=== PATIENT | male | born 1950 | race Caucasian/White ===

== ENCOUNTER 2018-11-23 09:58 | Day surgery (SDC) ==
[2018-11-23] MEDS: TETRACAINE 0.5% UNIT-DOSE OP PRN ×2 (10:00→11:22)
[2018-11-23] MEDS: BETADINE OPTH PREP OP PRN ×2 (10:00→11:24)
[2018-11-23] MEDS: CYCLOGYL 2% OPTH OP PRN ×3 (10:01→10:11)
[2018-11-23] MEDS ORDERED: ZOFRAN 4 MG/2 ML IVP ONE (10:42)
[2018-11-23] MEDS ORDERED: LIDOCAINE 1% 20 ML MDV ID STA (10:42)
[2018-11-23] MEDS ORDERED: DEX-MOXI-KETOR OPTH INJ 1/0.5/0.4 MG/ML IO ONE (10:42)
[2018-11-23] MEDS ORDERED: BSS WITH EPINEPHRINE OP ONE (10:42)
[2018-11-23] MEDS ORDERED: LIDOCAINE 1%/PHENYLEPHRINE 1.5% BSS (SURGERY) INTRAOCULA ONE (10:42)
[2018-11-23 10:50] VITALS: TEMP 97.9
[2018-11-23] MEDS ORDERED: DECADRON 4 MG/ML SDV ONE (11:30)
[2018-11-23] MEDS ORDERED: DURAGESIC TD ONE (11:30)
[2018-11-23] MEDS ORDERED: VERSED ONE (11:30)
[2018-11-23] MEDS ORDERED: TORADOL ONE (11:30)
[2018-11-23] MEDS ORDERED: SUBLIMAZE ONE (11:30)
[2018-11-23] MEDS ORDERED: MIOSTAT INTRAOCULA ONE (12:00)
[2018-11-29 12:48] VITALS: BP 111/54
== END 2018-11-23 13:00 | disposition home or self-care (01) ==
LOC: SURG 09:58
PROVIDERS: ATTEND Ophthalmology
DX: H25.12 Age-related nuclear cataract, left eye (principal); H26.40 Unspecified secondary cataract

== ENCOUNTER 2018-12-07 08:59 | Day surgery (SDC) ==
[2018-12-07] MEDS: TETRACAINE 0.5% UNIT-DOSE OP PRN ×3 (09:30→10:20)
[2018-12-07] MEDS: BETADINE OPTH PREP OP PRN ×2 (09:31→10:12)
[2018-12-07] MEDS: CYCLOGYL 2% OPTH OP PRN ×3 (09:32→09:42)
[2018-12-07 09:49] VITALS: TEMP 97.5
[2018-12-07] MEDS ORDERED: LIDOCAINE 1%/PHENYLEPHRINE 1.5% BSS (SURGERY) INTRAOCULA ONE (09:49)
[2018-12-07] MEDS ORDERED: DEX-MOXI-KETOR OPTH INJ 1/0.5/0.4 MG/ML IO ONE (09:49)
[2018-12-07] MEDS ORDERED: ZOFRAN 4 MG/2 ML IVP ONE (09:49)
[2018-12-07] MEDS ORDERED: BSS WITH EPINEPHRINE OP ONE (09:49)
[2018-12-07] MEDS ORDERED: VERSED ONE (10:16)
[2018-12-07] MEDS ORDERED: SUBLIMAZE ONE (10:16)
[2018-12-07] MEDS ORDERED: ZOFRAN 4 MG/2 ML ONE (10:16)
[2018-12-07 12:40] VITALS: BP 121/62
== END 2018-12-07 11:15 | disposition home or self-care (01) ==
LOC: SURG 08:59
PROVIDERS: ATTEND Ophthalmology
DX: H25.11 Age-related nuclear cataract, right eye (principal)